=== PATIENT | male | born 1995 | race African-American/Black ===

== ENCOUNTER 2017-09-01 01:48 | Emergency (ER) | payer SELFPAY ==
[~2017-09-01] VITALS: Ht 180.3 cm; Wt 74.6 kg
[2017-09-01 01:55] VITALS: BP 140/75; Ht 180.3 cm; Wt 74.6 kg
== END 2017-09-01 04:47 | disposition left against medical advice (07) ==
LOC: ED 01:48
DX: Z53.21 Procedure and treatment not carried out due to patient leaving prior to being seen by health care provider (principal)

== ENCOUNTER 2017-09-01 12:27 | Emergency (ER) | payer SELFPAY ==
[~2017-09-01] VITALS: Ht 180.3 cm; Wt 73.0 kg
[2017-09-01 12:30] VITALS: Ht 180.3 cm; Wt 73.0 kg
[2017-09-01 15:30] VITALS: BP 125/63
== END 2017-09-01 15:30 | disposition home or self-care (01) ==
LOC: ED 12:27
DX: F43.9 Reaction to severe stress, unspecified (principal); R00.2 Palpitations
CPT/HCPCS: Q0092